=== PATIENT | male | born 1985 | race African-American/Black ===

== ENCOUNTER 2020-07-23 06:42 | Emergency (ER) | payer SELFPAY ==
[~2020-07-23] VITALS: Ht 170.2 cm; Wt 79.0 kg
[2020-07-23] MEDS ORDERED: ONDANSETRON HCL 4MG/2ML INJ IV ONE (08:30)
[2020-07-23] MEDS ORDERED: MORPHINE SULFATE 4 MG/ML CPJ (NOT FOR IM USE) IV ONE (08:30)
[2020-07-23 08:35] LABS: CHLORIDE 109 mEq/L (98-107)
[2020-07-23 08:40] LABS: BASOPHILS % 0.4 % (0.0-2.0); EOSINOPHILS % 0.1 % (0.0-5.0); HEMATOCRIT. 38.9 % (42.0-52.0); HEMOGLOBIN. 12.8 g/dL (14.0-18.0); MEAN CORPUSCULAR HEMOGLOBIN 29.6 pg (28.0-32.0); MEAN CORPUSCULAR VOLUME 89.9 fL (80.0-94.0); MONOCYTES % 9.3 % (2.0-8.0); NEUTROPHILS % 68.2 % (40.0-76.0); PLATELET 367 x1000/uL (130-400); RED BLOOD CELL COUNT 4.33 mill/uL (4.7-6.1); RED CELL DISTRIBUTION WIDTH 13.8 % (11.6-14.6)
[2020-07-23] MEDS ORDERED: LIDOCAINE HCL/EPINEPHRINE 1%-EPI 1:100,000 20 ML VIAL INFIL ONE (11:00)
[2020-07-23] MEDS ORDERED: TETANUS, DIPHTHERIA, PERTUSSIS VAC/PF 0.5ML (>7YR OLD) IM ONE (11:15)
[2020-07-23] MEDS ORDERED: BACITRACIN 15GM TUBE TOP ONE (12:15)
[2020-07-23 13:15] VITALS: BP 111/75
[2020-07-23] MEDS ORDERED: IOHEXOL-350 100 ML BOTTLE ONE (14:04)
== END 2020-07-23 13:10 | disposition home or self-care (01) ==
LOC: ER 06:42
DX: S56.221A Laceration of other flexor muscle, fascia and tendon at forearm level, right arm, initial encounter (principal); R55 Syncope and collapse; S01.81XA Laceration without foreign body of other part of head, initial encounter; X99.0XXA Assault by sharp glass, initial encounter; R03.0 Elevated blood-pressure reading, without diagnosis of hypertension; R00.0 Tachycardia, unspecified; I95.9 Hypotension, unspecified; Y93.89 Activity, other specified; Y92.89 Other specified places as the place of occurrence of the external cause; Z23 Encounter for immunization
CPT/HCPCS: 12002; 36415; 73206; 80053; 85025; 86850; 86900; 86901; 86920; 90471; 90715; 93005; 96374; 96375; 99285; J2270; J2405; J3490; Q9967; P9016

== ENCOUNTER 2020-07-25 14:27 | Emergency (ER) | payer MEDICAID ==
[~2020-07-25] VITALS: Ht 175.3 cm; Wt 94.5 kg
[2020-07-25 14:34] VITALS: BP 140/80
== END 2020-07-25 16:20 | disposition home or self-care (01) ==
LOC: ER 14:27
DX: Z48.00 Encounter for change or removal of nonsurgical wound dressing (principal)
CPT/HCPCS: 99281; Z7610

== ENCOUNTER 2020-08-02 12:12 | Emergency (ER) | payer MEDICAID ==
[~2020-08-02] VITALS: Ht 175.3 cm; Wt 95.0 kg
[2020-08-02] MEDS ORDERED: IBUPROFEN 800MG TABLET PO ONE (12:45)
[2020-08-02 13:33] VITALS: BP 111/85
== END 2020-08-02 13:34 | disposition home or self-care (01) ==
LOC: ER 12:12
DX: Z48.02 Encounter for removal of sutures (principal)
CPT/HCPCS: 99282